=== PATIENT | male | born 1985 | race American Indian/Alaskan Native ===

== ENCOUNTER 2017-05-13 19:21 | Emergency (ER) | payer OTHER ==
[~2017-05-13] VITALS: Ht 160 cm; Wt 68.0 kg
[~2017-05-13 19:21] MED LIST: ATIVAN1 MG PO; BACTRIM DS TAB1 EACH PO; CARBAMAZEPINE200 MG PO; DILANTIN100 MG PO; METRONIDAZOLE500 MG PO; NAPROSYN500 MG PO; TEGRETOL200 MG PO; TERBINAFINE HC250 MG PO; VITAMIN D35000 UNIT PO; ZOFRAN4 MG PO
[2017-05-13] MEDS ORDERED: ZOFRAN ODT4 MG PO (21:45)
== END 2017-05-13 22:28 | disposition home or self-care (01) ==
LOC: ED 19:21
DX: A08.4 Viral intestinal infection, unspecified (principal); R56.9 Unspecified convulsions; G80.9 Cerebral palsy, unspecified; Z98.890 Other specified postprocedural states; Z79.899 Other long term (current) drug therapy
CPT/HCPCS: 80053; 85025; 96361; 96374; 96375; 99283; J1200; J2405; J2765; J7030

== ENCOUNTER 2017-09-22 02:46 | Emergency (ER) | payer OTHER ==
[~2017-09-22] VITALS: Ht 160 cm; Wt 71.2 kg
--- OUTSIDE RECORDS SUMMARY | ~2017-09-22 | XMS | Clinical Summary ---
Demographics + + + | Address | [address] | | | [place] [address] | + + + | Home Phone | | + + + | Preferred Language | Unknown | + + + | Marital Status | Single | + + + | Catholic Affiliation | 1041 | + + + | Race | Unknown | + + + | Ethnic Group | Unknown | + + + Author + + + | Author | [facility] [place] | | | and [place] | + + + | Organization | [facility] [place] | | | and [place] | + + + | Address | Unknown | + + + | Phone | Unavailable | + + + Support + + +---------+ + | Name | Relationship | Address | Phone | + + +---------+ + | Yoon Zarco | ECON | Unknown | | + + +---------+ + Care Team Providers + +------+ + | Care Process Development Technician Name | Role | Phone | + +------+ + | Shaun Mcgee PA-C | PP | Unavailable | + +------+ + Allergies Not on File Current Medications Not on file Active Problems Not on file Social History + +-------+ +--------+------+ | Tobacco Use | Types | Packs/Day | Years | Date | | | | | Used | | + +-------+ +--------+------+ | Never Assessed | | | | | + +-------+ +--------+------+ + + + | Sex Assigned at | Date Recorded | | | | + + + | Not on file | | + + + Plan of Treatment + + + + + | Health Maintenance | Due Date | Last Done | Comments | + + + + + | Vaccine: | | | | | Dtap/Tdap/Td (1 - | 3 | | | | Tdap) | | | | + + + + + | Vaccine: Influenza | | | | | (#1) | 7 | | | + + + + + Results Not on filefrom Last 3 Months Insurance + +--------+ +--------+ +---------+ | Payer | Benefi | Subscriber | Type | Phone | Address | | | t Plan | ID | | | | | | / | | | | | | | Group | | | | | + +--------+ +--------+ +---------+ | [place] | MEDICA | xxxxxxxx | Medica | [phone] | | | [place] | | id | [phone] | | | | PLUS | | | | | + +--------+ +--------+ +---------+ | [employer] | IHS | xxxxxxxxx | Indemn | | | | SERVICE | YELLOW | | ity | | | | | [place] | | | | | + +--------+ +--------+ +---------+ + +--------+ +--------+ + + | Guarantor Name | Accoun | Relation to | Date | Phone | Billing Address | | | t Type | Patient | of | | | | | | | | | | + +--------+ +--------+ + + | DION MONTEJO | Person | Self | [birth year] | Home: | [address] | | | al/Fam | | 1984 | [phone] | [place] [address] | | | zach | | | [phone] | | + +--------+ +--------+ + +"
--- OUTSIDE RECORDS SUMMARY | ~2017-09-22 | XMS | Clinical Summary ---
Demographics + + + | Address | [address] | | | [place] [address] | + + + | Home Phone | | + + + | Preferred Language | Unknown | + + + | Marital Status | Single | + + + | Druze Affiliation | 1041 | + + + | Race | Unknown | + + + | Ethnic Group | Unknown | + + + Author + + + | Author | [facility] [place] | | | and [place] | + + + | Organization | [facility] [place] | | | and [place] | [...] Team Providers + +------+ + | Care Hoop Cutter Name | Role | Phone | + [...] | | + +--------+ +--------+ +---------+ | [employer] | IHS | [phone] | Indemn [...] | 1984 | [phone] | [place] [address] | | | zach | | | [phone] | | + +--------+ +--------+ + +"
--- OUTSIDE RECORDS SUMMARY | ~2017-09-22 | XMS | Clinical Summary ---
Demographics + + + | Address | [address] | | | [place] [address] | + + + | Preferred Language | Unknown | + + + | Marital Status | Single | + + + | Denominational Affiliation | CAT | + + + | Race | or | + + + | Ethnic Group | Not or | + + + Author + + + | Organization | Unknown | + + + | Address | Unknown | + + + | Phone | Unavailable | + + + Support + + + + + | Name | Relationship | Address | Phone | + + + + + | DIANE GORDON | [address] | [place], | | | | | [place] [address] | | + + + + + Care Team Providers + +------+ + | Care Casting Plug Assembler Name | Role | Phone | + +------+ + PP | Unavailable | + +------+ + Source Comments ESTRELLITA is fully live on both [facility] and [facility] InPatient.[facility] Allergies Not on File Current Medications Not [...] | + + + + + | INFLUENZA VACCINE | | | | | (FLU SHOT) | 8 | | | + + + + + Results Not on filefrom Last 3 Months"
--- OUTSIDE RECORDS SUMMARY | ~2017-09-22 | XMS | Clinical Summary ---
Demographics + + + | Address | [address] | | | [place] [address] | + + + | Preferred Language | Unknown | + + + | Marital Status | Single | + + + | Alevism Affiliation | CAT | + + + [...] [place], | | | | | [place] [address] | | + + + + + Care Team Providers + +------+ + | Care Hide Or Skin Buffer Name | Role | Phone | + +------+ + PP | Unavailable | + +------+ + Source Comments ESTRELLITA is fully live on both [facility] and [facility] Allergies Not on File Current Medications Not [...]
[~2017-09-22 02:46] MED LIST changes: +ZOFRAN ODT4 MG PO
[2017-09-22] MEDS ORDERED: GUAIFENESIN AC473 ML PO (03:49)
== END 2017-09-22 04:22 | disposition home or self-care (01) ==
LOC: ED 02:46
DX: J20.9 Acute bronchitis, unspecified (principal); G40.909 Epilepsy, unspecified, not intractable, without status epilepticus; Z79.899 Other long term (current) drug therapy
CPT/HCPCS: 71045; 99283; J1100

== ENCOUNTER 2018-02-18 13:23 | Emergency (ER) | payer OTHER ==
[~2018-02-18] VITALS: Ht 160 cm; Wt 71.2 kg
[~2018-02-18 13:23] MED LIST changes: +GUAIFENESIN AC473 ML PO
[2018-02-18] MEDS ORDERED: CILOXAN5 ML OU (14:13)
== END 2018-02-18 14:18 | disposition home or self-care (01) ==
LOC: ED 13:23
DX: H11.9 Unspecified disorder of conjunctiva (principal); Z79.899 Other long term (current) drug therapy
CPT/HCPCS: 99282

== ENCOUNTER 2018-09-24 00:42 | Emergency (ER) | payer OTHER ==
[~2018-09-24] VITALS: Ht 160 cm; Wt 71.2 kg
--- OUTSIDE RECORDS SUMMARY | ~2018-09-24 | XMS | Clinical Summary ---
Demographics + + + | Address | [address] | | | [place] [address] | + + + | Preferred Language | Unknown | + + + | Marital Status | Single | + + + | Taoist Affiliation | CAT | + + + [...] [place], | | | | | [place] [address] | | + + + + + Care Team Providers + +------+ + | Care Round Corner Cutter Operator Name | Role | Phone | + +------+ + PP | Unavailable | + +------+ + Source Comments ESTRELLITA is fully live on both [facility] and [facility] InPatient.[facility] Allergies Not on File Current [...] | + + + + + | Influenza (Flu) | | | | | vaccination (#1) | 8 | | | + + + + + Results Not on filefrom Last 3 Months"
--- OUTSIDE RECORDS SUMMARY | ~2018-09-24 | XMS | Clinical Summary ---
Demographics + + + | Address | [address] | | | [place] [address] | + + + | Home Phone | | + + + | Preferred Language | Unknown | + + + | Marital Status | Single | + + + | Islam Affiliation | 1041 | + + + | Race | Unknown | + + + | Ethnic Group | Unknown | + + + Author + + + | Author | [facility] [place] | | | and [place] | + + + | Organization | [facility] [place] | | | and [place] | [...] Team Providers + +------+ + | Care Business Technology Analyst Name | Role | Phone | + +------+ + | Shaun Mcgee PA-C | PP | Unavailable | + +------+ + Allergies Not on File Medications Not on file Active Problems Not [...] on file | | + + + + + + + | Job Start Date | Occupation | Industry | + + + + | Not on file | Not on file | Not on file | + + + + + + + + | Travel History | Travel Start | Travel End | + + + + + + | No recent travel history available. | + + Plan of Treatment + + + + + | Health Maintenance | Due Date | Last Done | Comments | + + + + + | Vaccine: | | | | | Dtap/Tdap/Td (1 - | 3 | | | | Tdap) | | | | + + + + + | Vaccine: Influenza | | | | | (Season Ended) | 9 | | | + + + + + Results Not on filefrom Last 3 Months Insurance + +--------+ +--------+ +---------+--------+ | Payer | Benefi | Subscriber | Effect | Phone | Address | Type | | | t Plan | ID | bandar | | | | | | / | | Dates | | | | | | Group | | | | | | + +--------+ +--------+ +---------+--------+ | [place] | MEDICA | [id number] | 01/21/20 | [phone] | | Medica | | | [place] | | 13-Pre | 2 | | id | | | PLUS | | sent | | | | + +--------+ +--------+ +---------+--------+ | [facility] | IHS | [id number] | Effect | | | Indemn | | SERVICE | YELLOW | | bandar | | | ity | | | [place] | | for | | | | | | | | all | | | | | | | | dates | | | | + +--------+ +--------+ +---------+--------+ + +--------+ +--------+ + + | Guarantor Name | Accoun | Relation to | Date | Phone | Billing Address | | | t Type | Patient | of | | | | | | | | | | + +--------+ +--------+ + + | Eric Fajardo | Person | Self | [birth year] | | [address] | | | al/Fam | | 1985 | [phone] | [place] [address] | | | zach | | | 2 (Home) | | + +--------+ +--------+ + + Advance Directives Patient has advance care planning documents on file. For more information, please contact:[facility] [place] [address]"
[~2018-09-24 00:42] MED LIST changes: +CILOXAN5 ML OU
[2018-09-24] MEDS ORDERED: AUGMENTIN 875-1 EACH PO (00:58)
[2018-09-24] MEDS ORDERED: ACETAMINOPHEN-1 EACH PO (00:58)
[2018-09-24] MEDS ORDERED: CLARITIN10 M2 PO (00:59)
== END 2018-09-24 01:55 | disposition home or self-care (01) ==
LOC: ED 00:42
DX: S83.91XA Sprain of unspecified site of right knee, initial encounter (principal); X50.9XXA Other and unspecified overexertion or strenuous movements or postures, initial encounter; Z79.899 Other long term (current) drug therapy
CPT/HCPCS: 73560; 99283-25

== ENCOUNTER 2019-03-15 12:44 | Emergency (ER) | payer OTHER ==
[~2019-03-15] VITALS: Ht 160 cm; Wt 78.0 kg
[~2019-03-15 12:44] MED LIST changes: +ACETAMINOPHEN-1 EACH PO; +AUGMENTIN 875-1 EACH PO; +CLARITIN10 M2 PO
[2019-03-15] MEDS ORDERED: TEGRETOL200 MG PO (13:23)
== END 2019-03-15 14:00 | disposition home or self-care (01) ==
LOC: ED 12:44
DX: G40.909 Epilepsy, unspecified, not intractable, without status epilepticus (principal)
CPT/HCPCS: 99281

== ENCOUNTER 2020-11-26 21:25 | Emergency (ER) | payer OTHER ==
[~2020-11-26] VITALS: Ht 160 cm; Wt 78.0 kg
[2020-11-26] MEDS ORDERED: CARBATROL200 MG PO (21:48)
== END 2020-11-26 22:12 | disposition home or self-care (01) ==
LOC: ED 21:25
DX: Z76.0 Encounter for issue of repeat prescription (principal); G40.909 Epilepsy, unspecified, not intractable, without status epilepticus; G80.9 Cerebral palsy, unspecified; Z79.899 Other long term (current) drug therapy
CPT/HCPCS: 99281

== ENCOUNTER 2021-06-18 12:11 | Emergency (ER) | payer OTHER ==
[~2021-06-18] VITALS: Ht 160 cm; Wt 78.0 kg
[~2021-06-18 12:11] MED LIST changes: +CARBATROL200 MG PO
[2021-06-18] MEDS ORDERED: DOXYCYCLINE HY100 MG PO (14:51)
== END 2021-06-18 15:04 | disposition home or self-care (01) ==
LOC: ED 12:11
DX: J20.5 Acute bronchitis due to respiratory syncytial virus (principal); Z20.822 Contact with and (suspected) exposure to COVID-19; Z79.899 Other long term (current) drug therapy
CPT/HCPCS: 71045; 80048; 83605; 85025; 99285-25; C9803; J7040; U0003

== ENCOUNTER 2021-07-06 19:26 | Emergency (ER) | payer OTHER ==
[~2021-07-06] VITALS: Ht 160 cm; Wt 86.6 kg
[~2021-07-06 19:26] MED LIST changes: +DOXYCYCLINE HY100 MG PO
--- OUTSIDE RECORDS SUMMARY | 2021-07-06 19:32 | XMS ---
PreManage Notification: DION MONTEJO Security Assistant Community Director Events No recent Security Events currently on file CRITERIA MET - [facility] - 2 Visits in 30 Days CARE PROVIDERS There are no care providers on record at this time. Mikaela has no Care Guidelines for this patient. [facility] VISIT COUNT (12 MO.) 3 [facility] TOTAL 3 NOTE: Visits indicate total known visits. ED/C VISIT TRACKING (12 MO.) 07/06/2021 19:26 [facility] [place] TYPE: Emergency COMPLAINT: - COUGH 06/18/2021 12:12 [facility] [place] TYPE: Emergency COMPLAINT: - COLD SYMPTOMS DIAGNOSES: - COUGH, UNSPECIFIED - Acute bronchitis due to respiratory syncytial virus - Other buttermaker helper (current) drug therapy 11/26/2020 21:25 [facility] [place] TYPE: Emergency COMPLAINT: - MEDICATION REFILL DIAGNOSES: - Epilepsy, unspecified, not intractable, without status epilepticus - Other long-term (current) drug therapy - Cerebral palsy, unspecified - Encounter for issue of repeat prescription INPATIENT VISIT TRACKING (12 MO.) No inpatient visits to display in this time frame [email or web address]
== END 2021-07-06 23:47 | disposition home or self-care (01) ==
LOC: ED 19:26
DX: J06.9 Acute upper respiratory infection, unspecified (principal); Z20.822 Contact with and (suspected) exposure to COVID-19; Z79.899 Other long term (current) drug therapy
CPT/HCPCS: 71045; 99283-25

== ENCOUNTER 2021-10-21 18:19 | Emergency (ER) | payer OTHER ==
[~2021-10-21] VITALS: Ht 160 cm; Wt 91.6 kg
[2021-10-21] MEDS ORDERED: DILANTIN100 MG PO (18:58)
== END 2021-10-21 19:11 | disposition home or self-care (01) ==
LOC: ED 18:19
DX: Z76.0 Encounter for issue of repeat prescription (principal)
CPT/HCPCS: 99281

== ENCOUNTER 2022-02-09 16:25 | Emergency (ER) | payer OTHER ==
[~2022-02-09] VITALS: Ht 160 cm; Wt 91.2 kg
== END 2022-02-09 20:16 | disposition home or self-care (01) ==
LOC: ED 16:25
DX: U07.1 COVID-19 (principal); G80.9 Cerebral palsy, unspecified; Z79.899 Other long term (current) drug therapy
CPT/HCPCS: 96374; 99283-25

== ENCOUNTER 2022-06-01 10:02 | Emergency (ER) | payer OTHER ==
[~2022-06-01] VITALS: Ht 160 cm; Wt 77.1 kg
[2022-06-01] MEDS ORDERED: TAMIFLU75 MG PO (13:19)
== END 2022-06-01 19:39 | disposition home or self-care (01) ==
LOC: ED 10:02
DX: J10.1 Influenza due to other identified influenza virus with other respiratory manifestations (principal); Z20.822 Contact with and (suspected) exposure to COVID-19
CPT/HCPCS: 87502; 99283; U0003

== ENCOUNTER 2022-07-26 22:39 | Inpatient (IN) | payer OTHER ==
[~2022-07-26] VITALS: Ht 160 cm; Wt 82.0 kg
[~2022-07-26 22:39] MED LIST changes: +TAMIFLU75 MG PO
--- OUTSIDE RECORDS SUMMARY | 2022-07-26 22:46 | XMS ---
PreManage Notification: DION MONTEJO Security Shovel Oiler Events 1 event(s) in the past 18 months Most recent security events: Elopement at [facility] 07/14/2021 19:01 - Other Details: PATIENT LWBS CRITERIA MET - [facility] - 2 Visits in 30 Days CARE PROVIDERS [facility] Case Management 07/07/2021-[facility] PHONE: [phone] Mikaela has no Care Guidelines for this patient. Care History Medical/Surgical 07/07/2021 [facility] - PATIENT IS [facility] ELIGIBLE, \T\middot;\T\nbsp; PLEASE REFER PATIENT TO [facility] FOR NON EMERGENT MEDICAL NEEDS. \T\middot;\T\nbsp; [facility] CAN SEE PATIENTS SAME DAY FOR APTS IF PATIENT CALLS FIRST THING IN THE MORNING. E.D. VISIT COUNT (12 MO.) 5 [facility]. TOTAL 5 NOTE: Visits indicate total known visits. ED/UCC VISIT TRACKING (12 MO.) 07/26/2022 22:40 [facility] [place] TYPE: Emergency COMPLAINT: - LEG PAIN 06/28/2022 19:46 [facility] [place] TYPE: Emergency COMPLAINT: - SEIZURE DIAGNOSES: - Acute kidney failure, unspecified - Pneumonia, unspecified organism - Severe sepsis without septic shock - Hyperosmolality and hypernatremia - Cerebral palsy, unspecified - Contact with and (suspected) exposure to COVID-19 - Sepsis, unspecified organism - Other symptoms and signs involving the musculoskeletal system 06/01/2022 10:03 [facility] [place] TYPE: Emergency COMPLAINT: - COUGH, CONGESTION DIAGNOSES: - Influenza due to other identified influenza virus with other respiratory manifestations - Contact with and (suspected) exposure to COVID-19 - Cough, unspecified 02/09/2022 16:26 [facility] [place] TYPE: Emergency COMPLAINT: - COUGH DIAGNOSES: - Cough, unspecified - Cerebral palsy, unspecified - Other senior living (current) drug therapy - COVID-19 10/21/2021 18:20 [facility] [place] TYPE: Emergency COMPLAINT: - MEDICATION REFILL DIAGNOSES: - Encounter for issue of repeat prescription INPATIENT VISIT TRACKING (12 MO.) 06/29/2022 03:21 [facility] [place] TYPE: Medical Surgical DIAGNOSES: - sepsis, pneumonia, hypernatremia - Ataxic cerebral palsy - Sepsis, unspecified organism - Acute kidney failure, unspecified - Severe sepsis with septic shock - Influenza due to unidentified influenza virus with other respiratory manifestations [email or web address]
[2022-07-26] MEDS ORDERED: METFORMIN HCL500 MG PO (22:54)
--- NOTE | 2022-07-27 03:25 | NUR ---
PT ARRIVED TO FLOOR FROM ED. REC'D REPORT FROM CATERING SALES MANAGER. PT AOX4, VSS, NAD. FATHER, SERGIO, AT BEDSIDE. PT REPORTS LOW LEVEL OF PAIN AND DECLINES NEED FOR PAIN MED. LUE IV PATENT AND INFUSING BOLUS. THIS ACOUSTICAL TILE DRILL PRESS OPERATOR ATTEMPTED TO INSERT ANOTHER IV PER PROTOCOL, BUT WAS UNSUCCESSFUL AFTER 2 ATTEMPTS. CHARGE NURSE AWARE. WILL CONTINUE TO MONITOR AND FOLLOW POC.
--- NOTE | 2022-07-27 06:38 | NUR ---
PT WITH NO ACUTE OVERNIGHT EVENTS. VSS, NAD, PAIN CONTROLLED AND AT TOLERABLE LEVEL CHARTED. FATHER AT BEDSIDE. WILL CONTINUE TO MONITOR AND FOLLOW POC.
--- NOTE | 2022-07-27 06:57 | NUR ---
PHONED PROVIDER TO EDILMA. DIET FOR PATIENT. ORDERS REC'D. WILL CONTINUE TO MONITOR AND FOLLOW POC.
--- NOTE | 2022-07-27 07:30 | NUR ---
ASSUMING CARE OF PT. PT RESTING IN BED WITH CALL LIGHT WITHIN REACH AND BEDRAIL UP FOR SAFETY. FATHER AT BEDSIDE. PT HAS D51/2NS WITH POTASSIUM @ 150ML/HR INFUSING IN LEFT HAND. PT ON CHIP SEPARATOR. LUNG SOUNDS CLEAR, BOWEL TONES ACTIVE IN ALL QUADRANTS, HEART SOUNDS STRONG, REGULAR. PT ALERT AND ORIENTED X3. PT HAS VENTURA IN PLACE AND HAS ADEQUATE OUTPUT. DENIES PAIN OR NAUSEA AT THIS TIME.
--- NOTE | 2022-07-27 08:47 | NUR ---
PATIENT ASSISTED TO BATHROOM WITH TWO PERSON ASSIST FOR SAFTEY. LINENS REPLACED AND PATIENT CALL LIGHT IN REACH. PATIENT VERBALIZED UNDERSTNADING USING CALL LIGHT AND IS RESING COMFTORABLY.
--- NOTE | 2022-07-27 09:52 | NUR ---
PT RESTING IN BED, CALL LIGHT WITHIN REACH, BEDRAIL UP FOR SAFETY. PT DENIES NAUSE OR PAIN AT THIS TIME. PT ALERT AND ORIENTED, BUT UNABLE TO STATE WHY HE WAS ADMITTED OR WHO THE PRESIDENT IS.
--- NOTE | 2022-07-27 10:20 | NUR ---
PATIENT VS TAKEN. PATIENT LAYING COMFORTABLY IN BED WITH CALL LIGHT ACCESIBLE. PATIENT HAS NO CONCERNS AND VERBALIZED UNDERSTANDING OF HOW TO USE CALL LIGHT.
--- NOTE | 2022-07-27 10:45 | NUR ---
DR OCHOA AT BEDSIDE ASSESSING PT AND DISCUSSING PLAN OF CARE. PT RESTING IN BED ANSWERING QUESTIONS ASKED. CALL LIGHT WITHIN REACH AND BEDRAIL UP FOR SAFETY.
--- NOTE | 2022-07-27 12:00 | NUR ---
PATIENT TO BR WITH 1PA(ON LEFT SIDE FOR SAFETY.) PATIENT HAD SMALL FORMED BM, THIS TRAINING LEAD ASSISTED IN CLEANING HIM UP. PATIENT BACK TO BED, PATIENT DISLIKED LUNCH, REQUESTED JELLO INSTEAD. PATIENT ENCOUAGED TO DRINK WATER INSTEAD OF SODA DUE TO SODIUM CONTENT. CALL LIGHT IN EASY REACH. NO OTHER NEEDS AT THIS TIME.
--- NOTE | 2022-07-27 12:40 | NUR ---
pt to room 113 from [facility]. oriented to call light and this rn, pt iv 150/hr fusing well, combs to gravity. pt provided meme. ensure and clear ensure juice as did not eat much lunch per report. father arrives to room, both deny needs - pleasant -
--- NOTE | 2022-07-27 13:33 | NUR ---
MED REC COMPLETE
--- NOTE | 2022-07-27 14:00 | NUR ---
pt resting in bed, case monitor in room with this rn and pt, father asleep on couch - did not awaken to conversation. pt talkative and answers questions. iv fusing and combs draining well.
--- NOTE | 2022-07-27 15:13 | NUR ---
Pt resting comfortably in bed. VS wnl. Abdomen soft, not tender, no guarding. Heart rate regular, S1 and S2 heard. Lungs clear bilaterally. Dad is sleeping on couch in room, pt has no complaints at this time.
--- NOTE | 2022-07-27 15:37 | NUR ---
Attempted to speak with Eric for his CM assessment. He has difficulty answering questions and answers yes to most questions. His dad is in the room and sleeping. Called and spoke with his aunt Valarie. Pt lives with his dad. Dad does not drive and Aunt drives them to appts and for grocery shopping. Dad does the cooking. Pt does not use any DME. She states the house is set up for Eric so everything is close to him. He is able to ambulate in the house and uses the 3 steps to get out of the home. There are rails. There is a ramp, but Eric does not use. She states the [facility] police and public health nurses check on Eric. She denies needs for pt and plans for pt to dc to home.
--- NOTE | 2022-07-27 18:30 | NUR ---
THIS RN IN TO ASSIST LAB TO DRAW BLOOD. BUTTERFLY USED TO DRAW FROM LEFT HAND - PT TOLLERATED PROCEDURE AMAZING! BLOOD GIVEN TO FRINGING MACHINE OPERATOR AND PT VITALS/I/O DONE.
--- NOTE | 2022-07-27 18:46 | NUR ---
Pt ate only 25% of dinner, clear ensure offered instead. BMP drawn at 1800, awaiting results. Potassium still infusing in left hand. Lung sounds clear.
--- NOTE | 2022-07-27 19:15 | NUR ---
ASSUMED CARE OF PATIENT UPON RECEIVING BEDSIDE HANDOFF REPORT FROM DAY NURSE. PT SITTING UP IN BED, AOX3, NAD, NO C/O. VENTURA CATHETER WNL. ENCOURAGED FLUIDS. WILL CONTINUE TO MONITOR AND FOLLOW POC.
--- NOTE | 2022-07-27 21:30 | NUR ---
IN ROOM AND ASSISTED PRIMARY RN WITH BOOSTING pt IN BED AND POSITION CHANGE. BED ALARM ON FOR SAFETY, CALL LIGHT IN REACH. pt LEFT RESTING IN BED, PRIMARY RN FERNANDO REMAINS IN ROOM FOR pt CARES.
--- NOTE | 2022-07-28 00:35 | NUR ---
PT SLEEPING. EASILY AROUSED. NO CHANGES NOTED.
--- NOTE | 2022-07-28 04:50 | NUR ---
PT SLEEPING. EASILY AROUSED. NO CHANGES TO ASSESSMENT. WILL CONTINUE TO MONITOR AND FOLLOW POC.
--- NOTE | 2022-07-28 07:18 | NUR ---
PT WITH NO ACUTE EVENTS OVERNIGHT. VSS, PT STATES THEY ARE PAIN FREE. HANDED OFF CARE OF PT DURING BEDSIDE REPORT TO DAY NURSE.
--- NOTE | 2022-07-28 08:20 | NUR ---
REPORT RECIEVED FROM NIGHT RN AND PT CARE RESUMED. PT. IS ALERT AND ORIENTED TO SELF AND PLACE. HE DENIES PAIN. ASSESSMENT COMPLETED. MEDS ADMINISTERED. PT. AMBULATED WITH HEAVY 2PA TO CHAIR FOR BREAKFAST. TOLERATED PO MEDS WELL. FATHER AT BEDSIDE.
--- NOTE | 2022-07-28 09:11 | NUR ---
Discussed with Pt father, Abdelrahman, about ensuring pt is drinking enough when home. Pt father believed pt was drinking but discovered he was not drinking as much as claimed. Pt father stated pt does not like water. This acute care certified nursing assistant suggested use of sugar-free flavoured arias and water flavored drops/powders. Pt father very interested in this and going to try different flavors for pt to increase hydration.
--- NOTE | 2022-07-28 10:52 | NUR ---
Pt up to bathroom, flatulence but no bowel movement. Decided to shower following toilet use. Pt very agreeable to shower, appeared to enjoy it. Pt assisted minimally, held rag and rubbed stomach. Shampooed, edilberto care, heavily scrubbed pt toes. Also lotioned pts feet and toes as he has a lot of build up of possible dirt/ skin/debris on and between his toes. Pt back to bed after shower and resting comfortably.
--- NOTE | 2022-07-28 13:56 | NUR ---
PATIENT IN BED, EYES CLOSED. VITALS AND I/O'S COMPLETED. BED ALARM ON, FALL MATS DOWN, AND CALL LIGHT IS WITHIN REACH.
--- NOTE | 2022-07-28 17:00 | NUR ---
VENTURA CATH REMOVED WITH TIP INTACT. 9ML SALINE REMOVED PT. TOLERATED WELL AND 400ML URINE IN CATH. 2PA ASSIST TO CHAIR FOR DINNER. LEFT RESTING WITH BRIEF IN PLACE AND FATHER AT BEDSIDE.
--- NOTE | 2022-07-28 18:23 | NUR ---
PATIENT IN BED AFTER MEAL. VITALS AND I/O'S COMPLETED. THE 400 IN OUTPUT IS RESIDUAL FROM CATHEDER BAG. BED ALARM ON. FATHER IN ROOM. CALL LIGHT IN REACH.
--- NOTE | 2022-07-28 19:10 | NUR ---
REPORT RECEIVED FROM TREVER GOMES. PT LAYING IN BED WITH EYES CLOSED. PT OPENS EYES WHEN ADDRESSED, RR EVEN AND UNLABORED. FATHER IN ROOM. PT AND FATHER REPORT NO NEEDS AT THIS TIME. CALL LIGHT IN REACH. BED ALARM ON.
--- NOTE | 2022-07-28 20:37 | NUR ---
VS AND I&O COMPLETED. PT UP TO BR WITH FWW AND BACK TO BED. NO OTHER NEEDS. CALL LIGHT IN REACH. FAMILY IN ROOM.
--- NOTE | 2022-07-28 20:59 | NUR ---
IN TO ADMINISTER MEDICAITONS, SEE MAR. PT SITTING UP IN BED WATCHING TV EATING PUDDING. PT TAKES PO MEDICATIONS WITH NO ISSUES. ASSESSMENT COMPLETE. LUNG SOUNDS CLEAR. BOWEL TONES ACTIVE. PT REPORTS NO PAIN AT THIS TIME. IV INFUSING WNL. PT REPROTS NO NEEDS AT THIS TIME. CALL LIGHT IN REACH. BED ALARM ON. STEP-FATHER IN ROOM DENEIS ANY NEEDS AT THIS TIME.
--- NOTE | 2022-07-28 22:05 | NUR ---
IN TO ROUND ON PT. PT SITTING UP IN BED WATCHING TV. RR EVEN AND UNLABORED. PT DENIES ANY NEEDS AT THIS TIME. STEP-FATHER IN ROOM ON COUCH DENIES ANY NEEDS AT THIS TIME. CALL LIGHT IN REACH. BED ALARM ON.
--- NOTE | 2022-07-28 23:19 | NUR ---
FATHER IN ROOM ON COUCH. NO NEEDS IDENTIFIED AT THIS TIME. CALL LIGHT IN REACH. BED ALARM ON.
--- NOTE | 2022-07-28 23:58 | NUR ---
IN TO ADMINISTER MEDICATION. IV FLUIDS STILL INFUSING AT THIS TIME AND SHOWS 50 MINUTES LEFT TO INFUSE. UNABLE TO HANG SCHEDULED BAG OF FLUIDS UNTIL CURRENT BAG IS COMPLETE. IV INFUSING WNL. PT LAYING IN BED WITH EYES CLOSED RR EVEN AND UNLABORED. FATHER IN ROOM ON COUCH WITH EYES CLOSED RR EVEN AND UNLABORED.
--- NOTE | 2022-07-29 00:49 | NUR ---
IN TO ROUND ON PT. IV INFUSING WNL. STILL WAITING FOR CURRENT FLUIDS TO BE COMPLETE. PT LAYING IN BED SEMI-FOWLERS WITH EYES CLOSED. RR EVEN AND UNLABORED. NO NEEDS IDENTIFIED AT THIS TIME. CALL LIGHT IN REACH. BED ALARM ON. FATHER IN ROOM ON COUCH.
--- NOTE | 2022-07-29 01:07 | NUR ---
PUMP ALARMING, RESOLVED. MEDICATION STARTED, SEE MAR. IV INFUSING WNL. PT LAYING IN BED WITH EYES CLOSED RR EVEN AND UNLABORED. FATHER ON COUCH. NO NEEDS IDENTIFIED AT THIS TIME. CALL LIGHT IN REACH. BED ALARM ON.
--- NOTE | 2022-07-29 02:19 | NUR ---
IN TO ANSWER CALL LIGHT. PT REQUESTING TOILETING NEEDS. 1PA WITH FWW FROM BED TO RESTROOM AND BACK TO BED. URINE OUTPUT NOTED. ASSESSMENT COMPLETE. LUNG SOUNDS CLEAR. BOWEL TONES ACTIVE. PT DENIES ANY PAIN AT THIS TIME. IV INFUSING WNL. TREVER BUSTOS IN TO ASSIST WITH BOOSTING PT UP IN BED. PT DENIES ANY OTHER NEEDS AT THIS TIME. CALL LIGHT IN REACH. BED ALARM ON. FATHER ON COUCH WITH EYES CLOSED RR EVEN AND UNLABORED.
--- NOTE | 2022-07-29 03:25 | NUR ---
IV INFUSING WNL. NO NEEDS IDENTIFIED AT THIS TIME. CALL LIGHT IN REACH. BED ALARM ON.
--- NOTE | 2022-07-29 05:14 | NUR ---
IN TO ROUND ON PT. MYLA CNA IN ROOM OBTAINING VITALS AND I&Os. NO NEEDS FROM THIS RN AT THIS TIME.
--- NOTE | 2022-07-29 06:19 | NUR ---
THIS RN TALKED TO DR. OCHOA TO UPDATE ABOUT PTs LABS. NO NEW ORDERS AT THIS TIME.
--- NOTE | 2022-07-29 06:28 | NUR ---
IN TO CLEAR VOLUME INFUSED ON PUMP AND UPDATE I&Os. PT LAYING IN BED WATCHING TV. RR EVEN AND UNLABORED. PT DENIES ANY NEEDS AT THIS TIME. CALL LIGHT IN REACH. FATHER IN ROOM ON PHONE. FATHER DENIES ANY NEEDS AT THIS TIME.
--- NOTE | 2022-07-29 06:55 | NUR ---
IN TO PLACE SCDs ON PT. PT REQUESTING CRANBERRY JUICE, CRANBERRY JUICE PROVIDED. PT REPORTS NO OTHER NEEDS AT THIS TIME. CALL LIGHT IN REACH. BED ALARM ON. FATHER IN ROOM AND DENIES ANY NEEDS.
--- NOTE | 2022-07-29 07:43 | NUR ---
REPORT RECIEVED FROM NIGHT RN - RN IN ROOM TO ASSIST PLASTIC PRINTER IN AMBULATING TO PT TO CHAIR FOR BREAKFAST. 2PERSON ASSIST. PT DENIES FURTHER NEEDS AT THIS TIME. CALL LIGHT IN REACH. FATHER NOT PRESENT IN ROOM AT THIS TIME.
--- NOTE | 2022-07-29 09:04 | NUR ---
PATIENT IN BED LISTENING TO MUSIC ON TELEVISION. PT DID WELL EATING ON HIS OWN. WAS ABLE TO MBA INTERN SPOON WITH FOOD ON IT AND BRING TO MOUTH FOR BITES. NO COUGHING OR SIGNS OF ASPIRATION OR CHOKING. PT WAS ALSO ABLE TO VERBILIZE THAT HE WAS "ALL FINISHED". VITALS AND I/O'S COMPLETED. BED ALARM ON. CALL LIGHT WITHIN REACH.
--- NOTE | 2022-07-29 09:05 | NUR ---
ASSESSMENT COMPLETE - NO CHANGES NOTED FROM PREVIOUS. IV SITE DC'D AFTER FINDING IT PARTIALLY REMOVED AND UNABLE TO FLUSH. SITE WNL AFTER DC. WILL ATTEMPT TO OBTAIN ACCESS. CALL LIGHT AT SIDE, WATCHING TV IN BED. DENIES NEEDS.
--- NOTE | 2022-07-29 12:00 | NUR ---
IV ACCESS OBTAINED BY CLINICAL NURSING COORDINATOR AFTER SEVERAL ATTEMPTS, USING ULTRASOUND. FLUIDS STARTED PER EMAR ORDER. PT TOLERATED WELL AND DENIES NEEDS AT THIS TIME.
--- NOTE | 2022-07-29 13:02 | NUR ---
rn rounding on pt - pt sitting up in bed watching tv. IV fluids infusing. pt ate 25% of lunch meal. encouraged water intake, denies further needs. call light in reach.
--- NOTE | 2022-07-29 13:55 | NUR ---
labs and other records req from [facility] in [place]. i spoke oralia garcia and her direct line is [phone].
--- NOTE | 2022-07-29 15:07 | NUR ---
ASSESSMENT COMPLETE, UNCHANGED. FATHER AT BEDSIDE NOW. IV SITE WNL AND INFUSING. PT ENCOURAGED TO DRINK WATER, ENJOYS CLEAR ENSURES. CALL LIGHT IN REACH.
--- NOTE | 2022-07-29 15:43 | NUR ---
PATIENT BACK INTO BED AFTER AMBULATING TO THE BATHROOM. MORE FLUIDS OFFERED AND TAKEN. BED ALARM ON, CALL LIGHT WITHIN REACH.
--- NOTE | 2022-07-29 16:26 | NUR ---
RN ROUNDING ON PT - RESTING IN BED ASLEEP. DAD AT BEDSIDE. PT WAKES EASILY AND DENIES NEEDS. ENCOURAGED ORAL INTAKE. ASSESSMENT UNCHANGED.
--- NOTE | 2022-07-29 18:30 | NUR ---
pt up to chair to eat dinner. encouraged oral intake. VSS. father at bedside.
--- NOTE | 2022-07-29 20:24 | NUR ---
IN TO ADMINISTER MEDICATIONS, SEE MAR. PT LAYING IN BED WITH EYES CLOSED RR EVEN AND UNLABORED. PT AWAKENS WHEN ADDRESSED. VITALS AND I&Os COMPLETE. ASSESSMENT COMPLETE. LUNG SOUNDS CLEAR. BOWEL TONES ACTIVE. PT DENIES ANY PAIN AT THIS TIME. ENCOURAGING PO INTAKE OF FLUIDS. PT REQUESTING SALAZAR ENSURE, PROVIDED. IV INFUSING WNL. PT DENIES ANY OTHER NEEDS AT THIS TIME. CALL LIGHT IN REACH. BED ALARM ON. FATHER IN ROOM AND FAINA ANY NEEDS.
--- NOTE | 2022-07-29 22:01 | NUR ---
UNABLE TO HANG NEW BAG OF FLUIDS PREVIOUS BAG IS STILL INFUSING AT THIS TIME. INFUSING WNL. PT LAYING IN BED WITH EYES CLOSED RR EVEN AND UNLABORED. FATHER LAYING ON COUCH. NO NEEDS IDENTIFIED AT THIS TIME. CALL LIGHT IN REACH. BED ALARM ON.
--- NOTE | 2022-07-29 22:28 | NUR ---
IN TO ROUND ON PT. PT LAYING IN BED WITH EYES CLOSED. RR EVEN AND UNLABORED. IV INFUSING WNL. NO NEEDS IDENTIFIED AT THIS TIME. CALL LIGHT IN REACH. BED ALARM ON. FATHER IN ROOM.
--- NOTE | 2022-07-29 22:51 | NUR ---
IV PUMP ALARMING, RESOLVED. PT LAYING IN BED RR EVEN AND UNLABORED. PT RESPONDS WHEN ADDRESSED. NO NEEDS REPORTED AT THIS TIME. PT LAYING IN BED WITH EYES CLOSED RR EVEN AND UNLABORED. CALL LIGHT IN REACH. BED ALARM ON.
--- NOTE | 2022-07-29 23:29 | NUR ---
IN TO ROUND ON PT. PT LAYING IN BED WITH EYES CLOSED. RR EVEN AND UNLABORED. IV INFUSING WNL. NO NEEDS IDENTIFIED A THIS TIME. CALL LIGHT IN REACH. BED ALARM ON.
--- NOTE | 2022-07-30 00:17 | NUR ---
IV PUMP ALARMING, RESOLVED. PT LAYING IN BED WITH EYES CLOSED RR EVEN AND UNLABORED. FATHER IN ROOM ON COUCH RR EVEN AND UNLABORED. NO NEEDS IDENTIFIED AT THIS TIME. CALL LIGHT IN REACH. BED ALARM ON.
--- NOTE | 2022-07-30 01:05 | NUR ---
IN ROOM IV PUMP ALARMING, RESOLVED. PT REQUESTING TOILETING AT THIS TIME. URINAL USED, SOME OUTPUT MISSED URINAL. LINENS CHANGED. PT SBA WITH FWW FROM BED TO CHAIR AND BACK TO BED AFTER LINEN CHANGE. IV INFUSING WNL. STILL UNABLE TO START NEW BAG OF FLUIDS PREVIOUS BAG CONTINUES TO INFUSE. PT LAYING IN BED RR EVEN AND UNLABORED. PT DENIES ANY OTHER NEEDS AT THIS TIME. CALL LIGHT IN REACH. BED ALARM ON. FATHER ON COUCH.
--- NOTE | 2022-07-30 02:10 | NUR ---
IN TO ROUND ON PT. PT LAYING IN BED WITH EYES CLOSED RR EVEN AND UNLABORED. IV INFUSING WNL. NO NEEDS IDENTIFIED AT THIS TIME. FATHER IN ROOM.
--- NOTE | 2022-07-30 03:06 | NUR ---
IN TO ROUND ON PT. PT LAYING IN BED WATCHING TV. RR EVEN AND UNLABORED. IV INFUSING WNL. PT DENIES ANY NEEDS AT THIS TIME. CALL LIGHT IN REACH. BED ALARM ON. FATHER ON COUCH REQUESTING SODA, SODA PROVIDED. NO OTHER NEEDS AT THIS TIME.
--- NOTE | 2022-07-30 04:48 | NUR ---
IN IV PUMP ALARMING, RESOLVED. PT LAYING IN BED WITH EYES CLOSED. RR EVEN AND UNLABORED. NO OTHER NEEDS IDENTIFIED AT THIS TIME. BED ALARM ON. CALL LIGHT IN REACH. FATHER ON COUCH.
--- NOTE | 2022-07-30 05:47 | NUR ---
IN TO ROUND ON PT. AKASH RN IN ROOM ASSISTING PT WITH TOILETING. VITALS AND I&Os COMPLETE. ASSESSMENT COMPLETE. LUNG SOUNDS CLEAR. BOWEL TONES ACTIVE. PT DENIES PAIN AT THIS TIME. IV INFUSING WNL. PT DENIES ANY NEEDS AT THIS TIME. CALL LIGHT IN REACH. BED ALARM ON. FATHER ON COUCH.
--- NOTE | 2022-07-30 07:30 | NUR ---
Patient in chair visiting with father. Am care completed, warm blanket given, chair alarm on, and call light is within reach.
--- NOTE | 2022-07-30 07:59 | NUR ---
report received from night rn - pt resting in bed, wakes easily. ultrasound scheduled for this morning, pt currently npo.
--- NOTE | 2022-07-30 08:30 | NUR ---
rn in room to assist pt back to bed for ultrasound. ambulates steady on feet with one person assist. father provided breakfast sandwhich.
--- NOTE | 2022-07-30 09:22 | NUR ---
PATIENT UP TO CHAIR FOR BREAKFAST. IV ON STANDBY DURING BREAKFAST.
--- NOTE | 2022-07-30 09:50 | NUR ---
RN IN ROOM TO ADMINISTER SCHEDULED MEDICATIONS. PT UP IN CHAIR FINISHING BREAKFAST, DENIES COMPLAINTS AT THIS TIME. ASSESSMENT COMPLETE.
--- NOTE | 2022-07-30 13:38 | NUR ---
RN ROUNDING ON PT - RESTING IN BED. IV ALARMING FREQUENTLY, IV PATENT BUT REQUIRES TRACTION R/T DEPTH OF VEIN. CONTINUING TO ENCOURAGE ORAL INTAKE OF WATER. FATHER AT BEDSIDE, STATES UNDERSTANDING OF POC DISCUSSED WITH .
--- NOTE | 2022-07-30 14:53 | NUR ---
PATIENT ON BED LAYING DOWN, EYES CLOSED. BREATHING UNLABORED. VITALS AND I/O'S COMPLETED AND DOCUMENTED. THIS GAMEPLAY ENGINEER STILL ENCOURAGING TO PUSH FLUIDS. FATHER IN ROOM. BED ALARM SERVICES COORDINATOR LIGHT WITHIN REACH.
--- NOTE | 2022-07-30 15:17 | NUR ---
RN ROUNDING ON PT - UP TO BATHROOM TO VOID. INCREASINGLY STEADY ON FEET. ENCOURAGING FREE WATER INTAKE. COFFEE PROVIDED TO FATHER AT BEDSIDE.
--- NOTE | 2022-07-30 17:47 | NUR ---
PATIENT UP TO BATHROOM WITH ONE PERSON ASSIST AND FWW TO BM AND VOID.
--- NOTE | 2022-07-30 18:08 | NUR ---
PATIENT IN BED. VITALS AND I/O'S COMPLETED. FAMILY IN ROOM. BED ALARM SET, CALL LIGHT WITHIN REACH.
--- NOTE | 2022-07-30 19:15 | NUR ---
REPORT RECEIVED FROM TREVER THOMAS. IN ROOM IV PUMP ALARMING, RESOLVED. PT SITTING UP IN BED WATCHING TV WITH FATHER. PT DENEIS ANY NEEDS AT THIS TIME. CALL LIGHT IN REACH. BED ALARM ON. FATHER REQUESTING COFFEE, COFFEE PROVIDED. NO OTHER NEEDS AT THIS TIME.
--- NOTE | 2022-07-30 20:55 | NUR ---
IN TO ADMINISTER MEDICATIONS, SEE MAR. PT TAKES PO MEDICATIONS WITH NO ISSUES. VITALS AND I&Os COMPLETE. IV INFUSING WNL. ASSESSMENT COMPLETE. LUNG SOUNDS CLEAR. BOWEL TONES ACTIVE. PT DENIES ANY PAIN AT THIS TIME. ENCOURAGE PO INTAKE OF FLUIDS. PT DENIES ANY OTHER NEEDS AT THIS TIME. CALL LIGHT IN REACH. BED ALARM ON. FATHER IN ROOM ON COUCH.
--- NOTE | 2022-07-30 21:15 | NUR ---
IN IV PUMP ALARMING, RESOLVED. NEW BAG OF FLUIDS STARTED, SEE MAR. PT LAYING IN BED WATCHING TV. OFFERED PT TOILETING, PT ACCEPTS. SBA WITH FWW FROM BED TO RESTROOM AND BACK TO BED WITH NO ISSUES. PT LAYING IN BED AND DENIES ANY NEEDS AT THIS TIME. IV INFUSING WNL. PT DENIES ANY OTHER NEEDS AT THIS TIME. CALL LIGHT IN REACH. BED ALARM ON. FATHER ON COUCH.
--- NOTE | 2022-07-30 22:57 | NUR ---
IN IV PUMP ALARMING, RESOLVED. ENCOURAGED PT TO DRINK MORE FLUIDS. PT SIPS ON FLAVORED WATER. PT LAYING IN BED WATCHING TV. RR EVEN AND UNLABORED. PT DENIES ANY NEEDS AT THIS TIME. CALL LIGHT IN REACH. BED ALARM ON.
--- NOTE | 2022-07-31 00:45 | NUR ---
IN TO ANSWER CALL LIGHT. PT REQUESTING TOILETING. SBA WITH FWW FROM BED TO RESTROOM AND BACK. PT LAYING IN BED RR EVEN AND UNLABORED. IV INFUSING WNL. PT DENEIS ANY NEEDS AT THIS TIME. CALL LIGHT IN REACH. BED ALARM ON. FATHER ON COUCH. RR EVEN AND UNLABORED.
--- NOTE | 2022-07-31 02:20 | NUR ---
IN TO ROUND ON PT. IV PUMP ALARMING, RESOLVED. PT AWAKE IN BED WATCHING TV, RR EVEN AND UNLABORED. ASSESSMENT COMPLETE. LUNG SOUNDS CLEAR. BOWEL TONES ACTIVE. PT DENEIS ANY PAIN AT THIS TIME. FATHER UP ON COUCH AND DENIES ANY NEEDS. PT DENIES ANY NEEDS AT THIS TIME. I&Os COMPLETE. FRESH WATER PROVIDED FOR PT. PT DENIES ANY OTHER NEEDS AT THIS TIME. CALL LIGHT IN REACH. BED ALARM ON. IV INFUSING WNL.
--- NOTE | 2022-07-31 03:38 | NUR ---
IN TO ROUND ON PT. PT LAYING IN BED WATCHING TV. ASKED PT IF HE NEEDS ANYTHING PT STATES "NO." IV INFUSING WNL. CALL LIGHT IN REACH. BED ALARM ON. FATHER ON COUCH.
--- NOTE | 2022-07-31 04:41 | NUR ---
IN TO ROUND ON PT. PT LAYING IN BED WATCHING TV. PT RESPONDS WHEN ADDRESSED AND DENIES ANY NEEDS AT THIS TIME. IV INFUSING WNL. CALL LIGHT IN REACH. BED ALARM ON. FATHER ON COUCH.
--- NOTE | 2022-07-31 04:53 | NUR ---
PATIENT CALLED TO USE THE BATHROOM TO VOID AND JOSE ANTONIO CUMMINS 1 PA. ASSISTED IN [facility] CARE. PATIENT IS BACK IN BED. DENIES FURTHER CARE NEEDS AT THIS TIME. BED ALARM ON FOR SAFETY. CALL LIGHT WITHIN REACH. PATIENT'S DAD IS LAYING ON THE COUCH.
--- NOTE | 2022-07-31 06:10 | NUR ---
IN TO ROUND ON PT. PT LAYING IN BED WATCHING TV. IV INFUSING WNL. PT DENEIS ANY NEEDS AT THIS TIME. CALL LIGHT IN REACH. BED ALARM ON. FATHER ON COUCH.
--- NOTE | 2022-07-31 07:26 | NUR ---
PT RESTING QUIET ALERT, DAD ASLEEP ON THE COUCH AT TIME OF SHIFT REPORT. FLUIDS AT BEDSIDE, CALL LIGHT IN REACH. PT APPEARS COMFORTABLE WATCHING TV.
--- NOTE | 2022-07-31 08:59 | NUR ---
PT UP IN THE CHAIR WATCHING [employer] EATS 100% OF MORNING MEAL. DAD REMAINS IN THE ROOM
== END 2022-07-31 10:10 | disposition home or self-care (01) | DRG 683 ==
LOC: ED 22:39 → CCU 22:41 → MS 07-27 12:40
PROVIDERS: ADMIT Internal Medicine; ATTEND Internal Medicine
DX: N17.9 Acute kidney failure, unspecified (principal); D61.818 Other pancytopenia; E87.0 Hyperosmolality and hypernatremia; Z20.822 Contact with and (suspected) exposure to COVID-19; R74.01 Elevation of levels of liver transaminase levels; E86.0 Dehydration; G40.909 Epilepsy, unspecified, not intractable, without status epilepticus; G80.9 Cerebral palsy, unspecified; E11.9 Type 2 diabetes mellitus without complications; Z98.890 Other specified postprocedural states; Z79.84 Long term (current) use of oral hypoglycemic drugs; Z79.899 Other long term (current) drug therapy
CPT/HCPCS: 36415; 76700; 80048; 80053; 80076; 81001; 82607; 82746; 83036; 83615; 83735; 85025; 85060; 85610; 85730; 86704; 86803; 87088; A9270; C9803; J1815; J3480; J7060; J7070; J7121; U0003

== ENCOUNTER 2023-04-16 04:54 | Emergency (ER) | payer OTHER ==
[~2023-04-16] VITALS: Ht 162.6 cm; Wt 78.7 kg
[~2023-04-16 04:54] MED LIST changes: +METFORMIN HCL500 MG PO
[2023-04-16 05:36] LABS: BASOPHILS 0.2 % (0-2); EOSINOPHILS 0.5 % (0-6); HEMATOCRIT 39.1 % (35.0-50.0); HEMOGLOBIN 13.2 g/dL (12.0-18.0); LYMPHOCYTES 0.8 % (24-44); MCH 31.2 (27-36); MCHC 33.7 g/dl (30-36); MCV 92.6 fl (81-99); MONOCYTES 3.6 % (0-12); NEUTROPHILS 94.9 % (39-80); PLATELET COUNT 110 K/uL (140-440); RBC 4.23 M/ul (4.3-5.7); RDW 14.2 (10.5-15.0)
[2023-04-16 05:47] LABS: ALBUMIN 1.7 g/dL (3.4-5.0); ALBUMIN/GLOBULIN RATIO 0.46 (1.1-2.4); BILIRUBIN, TOTAL 0.6 ng/dL (0.2-1.0); BUN/CREATININE RATIO 11.17 (6.0-28.6); CALCIUM 7.6 mg/dL (8.5-10.1); CREATININE, SERUM 6.62 mg/dL (0.70-1.30); PROTEIN, TOTAL 5.4 g/dL (6.4-8.2)
[2023-04-16 05:54] LABS: INFLUENZA B NAA NEGATIVE (NEGATIVE); RESPIRATORY SYNCYTIAL VIR NAA NEGATIVE (NEGATIVE)
[2023-04-16 06:48] LABS: BILIRUBIN, URINE NEGATIVE (negative); BLOOD/HGB, URINE SMALL (Negative); KETONE, URINE NEGATIVE (Negative); LEUK ESTERASE, URINE NEGATIVE (negative); NITRITE, URINE NEGATIVE (negative); PH, URINE 5.5 (5-7)
[2023-04-16 06:51] LABS: LACTIC ACID, BLOOD 2.1 mmol/L (0.4-2.0)
[2023-04-16 07:04] LABS: EPITHELIAL CELLS, URINE TRANSITIONAL 1+ /lpf (0-1+); WHITE BLOOD CELLS, URINE 0-1 /HPF (0-5)
[2023-04-16 07:09] LABS: BACTERIA, URINE NONE SEEN /hpf (negative); CASTS, URINE NONE SEEN \\lpf; COLLECTION TYPE, URINE CATH; CRYSTALS, URINE NONE SEEN (0-1+)
[2023-04-16 07:10] LABS: REFLEX CULTURE, URINE No (No)
[2023-04-16] MEDS ORDERED: PHENYTOIN SODI100 MG PO (08:58)
[2023-04-16 09:27] LABS: ANION GAP 17.5 (7-21); BUN/CREATININE RATIO 12.94 (6.0-28.6); CALCIUM 7.3 mg/dL (8.5-10.1); CREATININE, SERUM 5.87 mg/dL (0.70-1.30); POTASSIUM 3.5 mmol/L (3.5-5.1)
[2023-04-16 09:36] LABS: LACTIC ACID, BLOOD 1.1 mmol/L (0.4-2.0)
[2023-04-16 11:03] VITALS: BP 113/74
--- NOTE | 2023-04-16 21:04 | EKG ---
[facility] [address] [facility] [place] [address] Signed Sinus tachycardia Cannot rule out Inferior infarct (cited on or before 28-JUN-2022) Abnormal ECG When compared with ECG of 28-JUN-2022 20:11, T wave inversion no longer evident in Inferior leads T wave inversion no longer evident in Anterior leads Confirmed by Dea Gilman MD () on 04/16/2023 9:04:29 PM Electronically Signed By: DEA GILMAN MD 04/16/[id number] PATIENT NAME: DION MONTEJO Electrocardiogram DATE OF : 83 PHYSICIAN: DEA GILMAN MD REPORT #: [id number] REPORT IS CONFIDENTIAL AND NOT TO BE RELEASED WITHOUT AUTHORIZATION
== END 2023-04-16 10:50 | disposition short-term general hospital (02) ==
LOC: ED 04:54
PROVIDERS: Internal Medicine
DX: A41.9 Sepsis, unspecified organism (principal); J18.9 Pneumonia, unspecified organism; N17.9 Acute kidney failure, unspecified; K52.9 Noninfective gastroenteritis and colitis, unspecified; G40.909 Epilepsy, unspecified, not intractable, without status epilepticus; E11.9 Type 2 diabetes mellitus without complications; G80.9 Cerebral palsy, unspecified; Z79.899 Other long term (current) drug therapy; Z20.822 Contact with and (suspected) exposure to COVID-19
CPT/HCPCS: 36415; 51702; 71045; 71250; 74176; 80048; 80053; 81001; 82150; 82553; 83605; 84484; 85025; 85060; 87040; 87502; 93005; 93010; 99285-25; J0696; J2405; J3480; J7030; J7121; U0002

== ENCOUNTER 2025-01-31 14:53 | Emergency (ER) | payer OTHER ==
[~2025-01-31] VITALS: Ht 162.6 cm; Wt 64.8 kg
[~2025-01-31 14:53] MED LIST changes: +PHENYTOIN SODI100 MG PO
[2025-01-31 15:32] LABS: BASOPHILS 0.5 % (0.2-1.2); EOSINOPHILS 6.1 % (0.8-7.0); LYMPHOCYTES 10.2 % (21.8-53.1); MCH 26.0 PG (25.7-32.2); MCHC 31.5 g/dL (32.3-36.5); MCV 82.5 fL (79.0-92.2); MONOCYTES 6.1 % (5.3-12.2); NEUTROPHILS 76.9 % (34.0-67.9); RBC 5.15 M/uL (4.63-6.08)
[2025-01-31 15:54] LABS: ALT (SGPT) 26.0 U/L (14-59); AST (SGOT) 16.0 U/L (15-37); GLOMERULAR FILTRATION RATE,EST 73.0 mL/min (>60); PROTEIN, TOTAL 6.7 g/dL (6.4-8.2); UREA NITROGEN 13.0 mg/dL (7-18)
[2025-01-31 16:55] VITALS: BP 118/76
== END 2025-01-31 16:55 | disposition home or self-care (01) ==
LOC: ED 14:53
PROVIDERS: Emergency Medicine
DX: G80.9 Cerebral palsy, unspecified (principal); R53.81 Other malaise; E11.9 Type 2 diabetes mellitus without complications; Z79.899 Other long term (current) drug therapy; Z79.84 Long term (current) use of oral hypoglycemic drugs
CPT/HCPCS: 36415; 80053; 84484; 85025; 99283

== ENCOUNTER 2025-03-09 22:38 | Emergency (ER) | payer OTHER ==
[~2025-03-09] VITALS: Ht 162.6 cm; Wt 50.0 kg
[2025-03-09] MEDS ORDERED: TETRACAINE HCL 0.5% 4 ML BTL OU SCH (23:45)
[2025-03-10 00:13] VITALS: BP 121/90
== END 2025-03-10 00:15 | disposition home or self-care (01) ==
LOC: ED 22:38
DX: T51.2X1A Toxic effect of 2-Propanol, accidental (unintentional), initial encounter (principal); H57.12 Ocular pain, left eye; X58.XXXA Exposure to other specified factors, initial encounter
CPT/HCPCS: 99283